=== PATIENT | female | born 1975 | race Caucasian/White ===

== ENCOUNTER → 2018-05-08 15:34 | Outpatient (CLI) | payer BC, SELFPAY ==
[2018-05-08 16:09] LABS: Abs Immature Grans 0.01 k/cumm (0.0-0.09); Absolute Basophil Count 0.06 k/cumm (0.0-0.2); Absolute Eosinophil Count 0.07 k/cumm (0.0-0.7); Absolute Lymphocyte Count 1.21 k/cumm (1.2-3.4); Absolute Monocyte Count 0.58 k/cumm (0.11-0.7); Absolute Neutrophil Count 4.12 k/cumm (1.2-6.7); Eosinophils % 1.2; HCT 46.3 % (36.0-46.0); HGB 15.4 g/dL (12.0-15.5); Immature Grans % 0.2; Mean Corp. HGB Concentration 33.3 g/dL (32.0-36.0); Mean Corpuscular Hemoglobin 29.1 pg (27.0-33.0); Mean Corpuscular Volume 87.4 fL (80-95); Mean Platelet Volume 10.4 fL (8.0-11.0); Monocytes % 9.6; Platelet Count 278 x1000/uL (130-400); RBC Distribution Width 13.4 % (11.7-14.6); White Blood Cell Count 6.05 k/cumm (4.4-10.8)
[2018-05-08 17:23] LABS: ALT 17 U/L (12-78); AST 6 U/L (15-37); Albumin 4.3 g/dL (3.4-5.0); Alkaline Phosphatase 44 U/L (46-116); Anion Gap 9.7 mmol/L (3-11); BUN 24 mg/dL (7-18); Bilirubin, Total 0.3 mg/dL (0.2-1.0); CO2 29.3 mmol/L (21.0-32.0); CREATININE 0.91 mg/dL (0.55-1.02); Calcium 9.7 mg/dL (8.5-10.1); Chloride 105 mmol/L (98-107); Glucose 90 mg/dL (70-100); Potassium 4.2 mmol/L (3.5-5.1); Sodium 144 mmol/L (136-145); Total Protein 7.6 g/dL (6.4-8.2)
[2018-05-08 18:21] LABS: D-Dimer 211 ng/mlFEU (<500)
[2018-05-09 16:48] LABS: Vitamin D 25 Total 63.5 ng/ml (30-100)
[2018-05-09 17:46] LABS: Vitamin B12 463 pg/mL (193-986)
== END ==
PROVIDERS: PCP Family Medicine; Visit Provider Nurse Practitioner
DX: G35 Multiple sclerosis (principal); Z51.81 Encounter for therapeutic drug level monitoring; M25.571 Pain in right ankle and joints of right foot; M79.9 Soft tissue disorder, unspecified
CPT/HCPCS: 36415; 80053; 82306; 82607; 85025; 85379

== ENCOUNTER → 2018-05-14 00:50 | Outpatient (CLI) | payer BC, SELFPAY ==
--- NOTE | 2018-05-14 09:08 | DI.REPORT_ITS ---
SYMPTOM/DIAGNOSIS: SOFT TISSUE MASS, M79.9 SOFT TISSUE ULTRASOUND LEFT LOWER EXTREMITY: 05/14 Soft tissue ultrasound was performed to evaluate a palpable abnormality of the lateral hind foot/mid foot. There is an approximately 22 x 20 x 13 mm in diameter complex mass corresponding to the palpable abnormality. This is predominantly cystic but does contain some solid components. No vascular flow identified at Doppler evaluation. CONCLUSION: Indeterminate complex 2 cm mass as described above. The findings may represent a ganglion cyst with hemorrhage or other post traumatic finding. If clinically indicated, additional evaluation with MRI may be considered.
== END ==
PROVIDERS: PCP Family Medicine; Visit Provider Nurse Practitioner
DX: R22.42 Localized swelling, mass and lump, left lower limb (principal); M79.89 Other specified soft tissue disorders
CPT/HCPCS: 76882

== ENCOUNTER 2018-05-30 15:52 | Emergency (ER) | payer BC, SELFPAY ==
[2018-05-30 15:55] VITALS: BP 125/73; PULSE 59; RESP 16; TEMP 37; O2SAT 98
--- NOTE | 2018-05-30 16:15 | W.ED.GENAD ---
Discharge Plan Discharge Details Chief Complaint: Laceration Primary Care Provider: Brittaney Cosby ED Provider: Doyle Davis Home Meds and New Rx's Prescriptions: No Action cholecalciferol (vitamin D3) [D3-2000] 2,000 UNIT capsule 5,000 unit PO DAILY RF: 0 dimethyl fumarate [Tecfidera] 240 MG capsule,delayed release(DR/EC) 240 mg PO BID RF: 0 Medical Decision Making MDM Narrative Medical decision making narrative: 43-year-old female with right hand laceration she suffered while pushing down the garbage at home and lacerated her right thumb on a metal can. Her tetanus status is up-to-date. She has no numbness, tingling, weakness. Wound was anesthetized irrigated liberally, explored in a bloodless field without evidence of foreign body. Repaired with 3 interrupted 4-0 Vicryl sutures. Discussed home management as well as return precautions with the patient prior to dc. HPI - General Adult General Date/Time Provider Initiated Documentation: 05/30/18 15:53. Limitations to Documentation: no limitations. Information obtained by: patient. History of Present Illness 43 year old F presents to the emergency department with the chief complaint of Right thumb laceration, described as mild, Quality is described as aching, Patient reports no radiation. Patient started experiencing this minute(s) and it has been constant. No relieving factors improve symptom(s), No exacerbating factors reported . Patient notes no other symptoms. and other (No numbness, tingling, weakness. Tetanus status is up-to-date 2014.). Related Data Home Medications Medication Instructions Recorded Confirmed cholecalciferol (vitamin D3) 5,000 unit PO DAILY 02/03/17 05/30/18 [D3-1999] dimethyl fumarate [Tecfidera] 240 mg PO BID 02/03/17 05/30/18 Allergies Allergy/AdvReac Type Severity Reaction Status Date / Time No Known Allergies Allergy Unverified 05/30/18 15:58 General Stated Complaint: Laceration DANYA: 4 PFSH Social History Smoking/Tobacco Use Status: Former Tobacco Use Exam Const General: cooperative and healthy appearing Orientation: awake Resp Effort & Inspection: normal respiratory effort Extrem General: full ROM, normal capillary refill and other (Right thumb with laceration overlying the dorsal aspect proximally. It is curvilinear, through the dermis but not into the underlying tissues. No joint, tendon exposure. Range of motion and sensation intact distally.) Psych Affect: normal affect Attitude: cooperative Course Vital Signs Temperature 37.0 C 05/30/18 15:55 Pulse 59 L 05/30/18 15:55 Respiratory Rate 16 05/30/18 15:55 Blood Pressure 125/73 05/30/18 15:55 Pulse Oximetry 98 05/30/18 15:55 Temperature 37.0 C 05/30/18 15:55 Pulse 59 L 05/30/18 15:55 Respiratory Rate 16 05/30/18 15:55 Blood Pressure 125/73 05/30/18 15:55 Pulse Oximetry 98 05/30/18 15:55 Procedures Laceration Laceration 1: Site: hand Side (If applicable): right Depth: simple, single layer Local Anesthetic: Lidocaine 1% Amount of anesthesia used (mL): 1.5 Pre-repair: wound explored, irrigated extensively and deep structures intact Skin layer closed with: vicryl Size (cm): 4-0 Number of sutures: 3 Technique: simple, interrupted
--- NOTE | 2018-05-30 16:19 | ED.GENADUL_ITS ---
Discharge Plan Discharge Details Chief Complaint: Laceration Primary Care Provider: Brittaney Cosby ED Provider: Doyle Davis Home Meds and New Rx's Prescriptions: No Action cholecalciferol (vitamin D3) [D3-2000] 2,000 UNIT capsule 5,000 unit PO DAILY RF: 0 dimethyl fumarate [Tecfidera] 240 MG capsule,delayed release(DR/EC) 240 mg PO BID RF: 0 Medical Decision Making MDM Narrative Medical decision making narrative: 43-year-old female with right hand laceration she suffered while pushing down the garbage at home and lacerated her right thumb on a metal can. Her tetanus status is up-to-date. She has no numbness, tingling, weakness. Wound was anesthetized irrigated liberally, explored in a bloodless field without evidence of foreign body. Repaired with 3 interrupted 4-0 Vicryl sutures. Discussed home management as well as return precautions with the patient prior to dc. HPI - General Adult General Date/Time Provider Initiated Documentation: 05/30/18 15:53 . Limitations to Documentation: no limitations . Information obtained by: patient . History of Present Illness 43 year old F presents to the emergency department with the chief complaint of Right thumb laceration, described as mild, Quality is described as aching, Patient reports no radiation. Patient started experiencing this minute(s) and it has been constant. No relieving factors improve symptom(s), No exacerbating factors reported . Patient notes no other symptoms. and other ( No numbness, tingling, weakness. Tetanus status is up-to-date 2014.). Related Data Home Medications Medication Instructions Recorded Confirmed cholecalciferol (vitamin D3) 5,000 unit PO DAILY 02/03/17 05/30/18 [D3-1999] dimethyl fumarate [Tecfidera] 240 mg PO BID 02/03/17 05/30/18 Allergies Allergy/AdvReac Type Severity Reaction Status Date / Time No Known Allergies Allergy Unverified 05/30/18 15:58 General Stated Complaint: Laceration DANYA: 4 PFSH Social History Smoking/Tobacco Use Status: Former Tobacco Use Exam Const General: cooperative and healthy appearing Orientation: awake Resp Effort & Inspection: normal respiratory effort Extrem General: full ROM, normal capillary refill and other (Right thumb with laceration overlying the dorsal aspect proximally. It is curvilinear, through the dermis but not into the underlying tissues. No joint, tendon exposure. Range of motion and sensation intact distally.) Psych Affect: normal affect Attitude: cooperative Course Vital Signs Temperature 37.0 C 05/30/18 15:55 Pulse 59 L 05/30/18 15:55 Respiratory Rate 16 05/30/18 15:55 Blood Pressure 125/73 05/30/18 15:55 Pulse Oximetry 98 05/30/18 15:55 Temperature 37.0 C 05/30/18 15:55 Pulse 59 L 05/30/18 15:55 Respiratory Rate 16 05/30/18 15:55 Blood Pressure 125/73 05/30/18 15:55 Pulse Oximetry 98 05/30/18 15:55 Procedures Laceration Laceration 1: Site: hand Side (If applicable): right Depth: simple, single layer Local Anesthetic: Lidocaine 1% Amount of anesthesia used (mL): 1.5 Pre-repair: wound explored, irrigated extensively and deep structures intact Skin layer closed with: vicryl Size (cm): 4-0 Number of sutures: 3 Technique: simple, interrupted
[2018-05-30 16:30] VITALS: BP 123/78; PULSE 61; RESP 16; TEMP 36.7; O2SAT 98
== END 2018-05-30 16:32 | disposition home or self-care (01) ==
LOC: ER 16:25
PROVIDERS: Emergency Provider Emergency Medicine; PCP Family Medicine
DX: S61.011A Laceration without foreign body of right thumb without damage to nail, initial encounter (principal); W26.8XXA Contact with other sharp object(s), not elsewhere classified, initial encounter
CPT/HCPCS: 12002

== ENCOUNTER 2018-09-25 11:50 | Outpatient (CLI) | payer BC, SELFPAY ==
[2018-09-25 12:44] LABS: Absolute Basophil Count 0.03 k/cumm (0.0-0.2); Absolute Eosinophil Count 0.08 k/cumm (0.0-0.7); Absolute Lymphocyte Count 1.21 k/cumm (1.2-3.4); Absolute Monocyte Count 0.53 k/cumm (0.11-0.7); Absolute Neutrophil Count 4.55 k/cumm (1.2-6.7); Basophils % 0.5; Eosinophils % 1.3; HCT 43.8 % (36.0-46.0); HGB 14.5 g/dL (12.0-15.5); Lymphocytes % 18.9; Mean Corp. HGB Concentration 33.1 g/dL (32.0-36.0); Mean Corpuscular Hemoglobin 29.6 pg (27.0-33.0); Mean Corpuscular Volume 89.4 fL (80-95); Mean Platelet Volume 9.8 fL (8.0-11.0); Monocytes % 8.3; Platelet Count 297 x1000/uL (130-400); RBC Distribution Width 13.1 % (11.7-14.6)
== END 2018-09-25 12:10 ==
PROVIDERS: PCP Family Medicine; Visit Provider Nurse Practitioner Adult Health
DX: G35 Multiple sclerosis (principal)
CPT/HCPCS: 36415; 85025

== ENCOUNTER 2018-11-20 17:32 | Outpatient (REF) | payer BC, SELFPAY ==
--- NOTE | 2018-11-20 15:30 | PAPFT_PTH ---
PATIENT: GIGI ABARCA LOC: [facility] U#:[id number] AGE/SX: 43/F ROOM: RE11/20/[address]: Radha Verma : 1975 BED: DIS: 11/20/2018 SPEC #: [id number] RECD: 11/21/18 13:12 STATUS: NORMA RELynnette #: [id number] BING: 11/20/18 15:[address]: Radha Verma DEPT: COUNT INCLUDES THE [facility] Cytology RECD BY: Noemy Mcneal ENTERED: 11/21/18 13:13 SP TYPE: PAPFT OTHR DR: Brittaney Cosby Tissues: 1 - CX/ENDOCX FOR PAP SMEARS Procedures: PAP THIN PREP/[facility] Screening HPV DNA PROBE Comments: [id number]
== END 2018-11-20 17:52 ==
LOC: NCHCN 17:32
PROVIDERS: PCP Family Medicine; Visit Provider Nurse Practitioner
DX: Z00.00 Encounter for general adult medical examination without abnormal findings (principal); Z12.4 Encounter for screening for malignant neoplasm of cervix; Z11.51 Encounter for screening for human papillomavirus (HPV); Z01.419 Encounter for gynecological examination (general) (routine) without abnormal findings
CPT/HCPCS: 88142; 87624

== ENCOUNTER 2018-12-11 15:33 | Outpatient (CLI) | payer BC, SELFPAY ==
[2018-12-11 16:19] LABS: Abs Immature Grans 0.01 k/cumm (0.0-0.09); Absolute Basophil Count 0.03 k/cumm (0.0-0.2); Absolute Eosinophil Count 0.05 k/cumm (0.0-0.7); Absolute Lymphocyte Count 1.25 k/cumm (1.2-3.4); Absolute Monocyte Count 0.51 k/cumm (0.11-0.7); Absolute Neutrophil Count 3.58 k/cumm (1.2-6.7); Basophils % 0.6; Eosinophils % 0.9; HCT 42.3 % (36.0-46.0); Immature Grans % 0.2; Mean Corp. HGB Concentration 33.1 g/dL (32.0-36.0); Mean Corpuscular Hemoglobin 29.4 pg (27.0-33.0); Mean Corpuscular Volume 88.9 fL (80-95); Mean Platelet Volume 10.2 fL (8.0-11.0); Monocytes % 9.4; Neutrophils % 65.9; Platelet Count 309 x1000/uL (130-400); RBC 4.76 m/cumm (4.00-5.20); RBC Distribution Width 13.2 % (11.7-14.6); White Blood Cell Count 5.43 k/cumm (4.4-10.8)
== END 2018-12-11 15:53 ==
PROVIDERS: Psychiatry & Neurology Neurology; PCP Family Medicine; Visit Provider Family Medicine
DX: G35 Multiple sclerosis (principal)
CPT/HCPCS: 36415; 85025

== ENCOUNTER 2019-04-24 12:41 | Outpatient (CLI) | payer BC, SELFPAY ==
[2019-04-24 13:06] LABS: Abs Immature Grans 0.01 k/cumm (0.0-0.09); Absolute Basophil Count 0.04 k/cumm (0.0-0.2); Absolute Eosinophil Count 0.12 k/cumm (0.0-0.7); Absolute Lymphocyte Count 0.96 k/cumm (1.2-3.4); Absolute Monocyte Count 0.56 k/cumm (0.11-0.7); Absolute Neutrophil Count 4.59 k/cumm (1.2-6.7); Basophils % 0.6; Eosinophils % 1.9; HCT 41.5 % (36.0-46.0); Immature Grans % 0.2; Lymphocytes % 15.3; Mean Corp. HGB Concentration 33.7 g/dL (32.0-36.0); Mean Corpuscular Hemoglobin 29.9 pg (27.0-33.0); Mean Corpuscular Volume 88.5 fL (80-95); Mean Platelet Volume 9.9 fL (8.0-11.0); Monocytes % 8.9; Neutrophils % 73.1; Platelet Count 309 x1000/uL (130-400); RBC 4.69 m/cumm (4.00-5.20); White Blood Cell Count 6.28 k/cumm (4.4-10.8)
== END 2019-04-24 13:01 ==
PROVIDERS: PCP Family Medicine; Visit Provider Psychiatry & Neurology Neurology
DX: G35 Multiple sclerosis (principal)
CPT/HCPCS: 36415; 85025

== ENCOUNTER 2019-11-12 10:22 | Outpatient (CLI) | payer BC, SELFPAY ==
[2019-11-12 10:51] LABS: Absolute Basophil Count 0.02 k/cumm (0.0-0.2); Absolute Eosinophil Count 0.05 k/cumm (0.0-0.7); Absolute Lymphocyte Count 1.23 k/cumm (1.2-3.4); Absolute Monocyte Count 0.42 k/cumm (0.11-0.7); Absolute Neutrophil Count 3.51 k/cumm (1.2-6.7); Basophils % 0.4; HCT 41.1 % (36.0-46.0); HGB 13.8 g/dL (12.0-15.5); Lymphocytes % 23.5; Mean Corp. HGB Concentration 33.6 g/dL (32.0-36.0); Mean Corpuscular Hemoglobin 29.6 pg (27.0-33.0); Mean Platelet Volume 9.7 fL (8.0-11.0); Neutrophils % 67.1; Platelet Count 364 x1000/uL (130-400); RBC 4.67 m/cumm (4.00-5.20); RBC Distribution Width 12.9 % (11.7-14.6); White Blood Cell Count 5.23 k/cumm (4.4-10.8)
[2019-11-12 10:51] LABS: Bilirubin Negative (Negative); Blood Negative (Negative); Clarity Clear (Clear); Glucose Negative (Negative); Ketones Negative (Negative); Leukocyte Esterase Negative (Negative); Nitrite Negative (Negative); Specific Gravity 1.015 (1.005-1.025); Urobilinogen 0.2 EU/dL (Up TO 0.2)
[2019-11-12 12:25] LABS: Vitamin D 25 Total 51.6 ng/ml (30-100)
[2019-11-12 12:26] LABS: ALT 16 U/L (14-59); AST 9 U/L (15-37); Albumin 4.2 g/dL (3.4-5.0); Anion Gap 9.8 mmol/L (3-11); BUN 16 mg/dL (7-18); Bilirubin, Total 0.4 mg/dL (0.2-1.0); CO2 28.2 mmol/L (21.0-32.0); CREATININE 0.65 mg/dL (0.55-1.02); Calcium 9.3 mg/dL (8.5-10.1); Chloride 104 mmol/L (98-107); Glucose 82 mg/dL (74-106); Potassium 4.3 mmol/L (3.5-5.1); Sodium 142 mmol/L (136-145); Total Protein 6.9 g/dL (6.4-8.2); Vitamin B12 730 pg/mL (193-986)
[2019-11-12 12:42] LABS: Alkaline Phosphatase 43 U/L (46-116)
== END 2019-11-12 10:42 ==
PROVIDERS: PCP Family Medicine; Visit Provider Psychiatry & Neurology Neurology
DX: G35 Multiple sclerosis (principal); R79.89 Other specified abnormal findings of blood chemistry
CPT/HCPCS: 36415; 80053; 82306; 81003; 82607; 85025

== ENCOUNTER 2020-03-21 13:06 | Outpatient (REF) | payer BC, SELFPAY | END 2020-03-21 13:26 | LOC: NCHCN 13:06 | PROVIDERS: PCP Family Medicine; Visit Provider Nurse Practitioner Family | DX: N39.0 Urinary tract infection, site not specified (principal) | CPT/HCPCS: 87086 ==

== ENCOUNTER 2020-12-23 10:25 | Outpatient (REF) | payer BC, SELFPAY ==
[2020-12-23 13:18] LABS: ALT 20 U/L (14-59); AST 10 U/L (15-37); Albumin 4.4 g/dL (3.4-5.0); Alkaline Phosphatase 59 U/L (46-116); Anion Gap 6.9 mmol/L (3-11); BUN 16 mg/dL (7-18); Bilirubin, Total 0.5 mg/dL (0.2-1.0); CO2 31.1 mmol/L (21.0-32.0); CREATININE 0.8 mg/dL (0.55-1.02); Calcium 9.5 mg/dL (8.5-10.1); Chloride 105 mmol/L (98-107); Glucose 85 mg/dL (74-106); Sodium 143 mmol/L (136-145); Total Protein 7.7 g/dL (6.4-8.2)
[2020-12-23 13:20] LABS: Calculated LDL 121 mg/dL (<100); Cholesterol 234 mg/dL (<200); HDL Cholesterol 96 mg/dL (40-60); Triglyceride 85 mg/dL (<150)
== END 2020-12-23 10:26 | disposition home or self-care (01) ==
LOC: LBN 10:25
PROVIDERS: PCP Family Medicine; Visit Provider Psychiatry & Neurology Neurology
DX: G35 Multiple sclerosis (principal); Z13.220 Encounter for screening for lipoid disorders
CPT/HCPCS: 80053; 80061